=== PATIENT | male | born 1985 | race Two or more races ===

== ENCOUNTER 2017-08-02 09:10 | Outpatient (CLI) | payer OTHER | END 2017-08-02 09:20 | disposition home or self-care (01) | LOC: LAB 09:10 | DX: N41.0 Acute prostatitis (principal); N39.0 Urinary tract infection, site not specified; A64 Unspecified sexually transmitted disease; E78.1 Pure hyperglyceridemia ==

== ENCOUNTER → 2017-08-02 | Outpatient (CLI) | payer OTHER | END | disposition home or self-care (01) | LOC: RAD 10:30 | DX: N41.8 Other inflammatory diseases of prostate (principal) ==

== ENCOUNTER 2021-03-16 13:20 | Outpatient (CLI) | payer OTHER | END 2021-03-16 13:26 | disposition home or self-care (01) | LOC: LAB 13:20 | DX: Z20.822 Contact with and (suspected) exposure to COVID-19 (principal) ==